=== PATIENT | male | born 1955 | race Caucasian/White ===

== ENCOUNTER → 2016-06-04 | Outpatient (CLI) | payer OTHER ==
[2015-11-03 15:18] VITALS: BP 112/61
[~2016-06-04] MED LIST: ASPI-482 PO; ATOR10TA60 PO; MULT-245 PO; OMEG1CAP6 PO
--- NOTE | 2016-06-04 10:54 | KCIC ---
PROCEDURE Orbit radiograph HISTORY History of metal to the left eye, pre MRI screen COMPARISON None FINDINGS Single-view of the orbits is submitted. No metallic foreign body is identified in the region of the orbits. There is dental hardware present. IMPRESSION No metallic foreign body is identified in the region of the orbits. Electronically signed by: Omar Diop MD (Jun 04, 2016 10:52:50)
--- NOTE | 2016-06-04 12:30 | KCIC ---
PROCEDURE MRI thoracic spine without contrast HISTORY Thoracic pain, pain between the shoulder blades for 1 year TECHNIQUE Sagittal and axial T1 and T2 and sagittal STIR images were acquired of the thoracic spine. Contrast: None COMPARISON None FINDINGS There is some motion degradation. Thoracic vertebral body stature is overall preserved. Thoracic cord caliber is within normal limits, no convincing focal signal abnormality allowing for some motion degradation. Some heterogeneous signal dorsal to the thoracic cord is more commonly due to CSF pulsation artifact. Focus of marrow signal abnormality of the T10 vertebral body is more likely due to a hemangioma, also likely foci of the posterior left T11 and posterior right T12 vertebral bodies. Foci are associated with variable increased signal on all sequences. There is no significant thoracic spinal stenosis at any level. Thoracic neural foramina are not significantly narrowed. Intervertebral disc spaces are relatively maintained, mild degenerative disc disease centered about mid thoracic levels. As seen on the localizer, there is degenerative disc disease of lumbar spine greatest at L3-4, multilevel posterior bulges. IMPRESSION 1. There is no significant thoracic spinal stenosis or neural foramina compromise. 2. Foci of marrow signal abnormality of the T10, T11, T12 vertebral bodies are favored to be due to hemangiomas. Electronically signed by: Omar Dipo MD (Jun 04, 2016 12:28:16)
== END | disposition home or self-care (01) ==
LOC: KCIC MRI 09:48
PROVIDERS: ATTEND Internal Medicine
DX: M54.6 Pain in thoracic spine (principal); Z90.01 Acquired absence of eye
CPT/HCPCS: 70030; 72146

== ENCOUNTER 2018-04-11 11:48 | Day surgery (SDC) | payer OTHER ==
[~2018-04-11 11:48] MED LIST changes: +HYDROmorphone 2 MG/ML VIAL IV PRN; +IV RINGERS,LACTATED 1000ML 1,000 ML IV SCH; +LIDOCAINE 1% PF 2 ML VIAL. ID PRN; +MORPHINE SULFATE 2 MG/ML VIAL. IV PRN; +ONDANSETRON PF 4 MG/2 ML VIAL. IV PRN; +PROCHLORPERAZINE 10 MG/2 ML VIAL. IV PRN; +fentaNYL PF VIAL 100 MCG/2 ML VIAL IV PRN
[2018-04-11] MEDS ORDERED: PROPOFOL 100 ML IV ONE (12:25)
[2018-04-11] MEDS ORDERED: PROPOFOL 20 ML IV ONE (12:26)
[2018-04-11] MEDS ORDERED: MIDAZOLAM HCL/PF 2 MG/2 ML VIAL. ONE (12:26)
[2018-04-11] MEDS ORDERED: KETAMINE HCL IN STERILE WATER 50 MG/5 ML SYRINGE ONE (12:26)
[2018-04-11 13:10] VITALS: BP 106/70
--- NOTE | 2018-04-11 14:17 | RAD ---
MRI Cervical Spine Without Contrast History: Neck pain, left arm radiculopathy, worsening pain in the last 2 years Technique: Multiplanar, multi sequential noncontrast MR imaging was performed of the cervical spine. Comparison: None Findings: There is some motion degradation. Cervical cord caliber is within normal limits without significant focal signal abnormality. There is no significant abnormality of the cervical medullary junction. Cervical vertebral body stature is preserved. There is negligible anterior spondylolisthesis C3-C4. There is no significant marrow edema. There is minimal degenerative disc disease at C3-4, mild disc desiccation at other levels of the cervical spine. C2-C3: There is fairly severe left facet degenerative change, mild posterior narrowing of the left neural foramen. Right neural foramen and spinal canal are adequate. C3-C4: There is posterior central protrusion about 3 to 4 mm AP by 6 to 7 mm transverse by 6 mm CC with more focal indentation upon the ventral thecal sac centrally, central canal narrowed to 7-8 mm, light contact of the ventral cord. There is severe left greater than right facet degenerative change. There is mild left uncovertebral degenerative change. There is fairly severe narrowing on the left neural foramen, right neural foramen overall adequate. C4-C5: There is severe facet degenerative change. There is minimal buckling of the ligamentum flavum. Central canal is adequate about 11 mm. There is mild posterior narrowing of the left neural foramen, right neural foramen adequate. C5-C6: There is posterior protrusion, indentation upon the ventral thecal sac, mild narrowing of the central canal about 9 mm. There is bilateral facet hypertrophic change. There is mild narrowing of the left neural foramen, right neural foramen adequate. C6-C7: Spinal canal and neural foramina are adequate. There is facet degenerative change. C7-T1: Neural foramina and spinal canal are adequate. Impression: 1. There is spinal stenosis on the order 7 to 8 mm at C3-4 with light contact of the ventral cord by protrusion, lesser degree of mild spinal stenosis C5-6. 2. There is fairly severe narrowing of the left C3-4 neural foramen due to facet and uncovertebral degenerative change, minimal narrowing on the left at C2-3, C4-5, and C5-6. There is multilevel facet degenerative change. There is negligible anterior spondylolisthesis C3-4. There is mild degenerative disc disease C3-4. Electronically signed by: Jayant Diop MD (04/11/2018 2:14 PM) [id number]
== END 2018-04-11 13:31 | disposition home or self-care (01) ==
LOC: MRI 11:48
PROVIDERS: ATTEND Anesthesiology
DX: M48.02 Spinal stenosis, cervical region (principal); M43.12 Spondylolisthesis, cervical region; M50.123 Cervical disc disorder at C6-C7 level with radiculopathy; Z88.8 Allergy status to other drugs, medicaments and biological substances
CPT/HCPCS: 72141; J2250; J2704

== ENCOUNTER → 2018-05-14 | Outpatient (CLI) | payer OTHER ==
[~2018-05-14] MED LIST changes: +FAMOTIDINE 20 MG/2 ML VIAL ONE; -HYDROmorphone 2 MG/ML VIAL IV PRN; -IV RINGERS,LACTATED 1000ML 1,000 ML IV SCH; +KETAMINE HCL IN STERILE WATER 50 MG/5 ML SYRINGE ONE; -LIDOCAINE 1% PF 2 ML VIAL. ID PRN; +MIDAZOLAM HCL/PF 2 MG/2 ML VIAL. ONE; -MORPHINE SULFATE 2 MG/ML VIAL. IV PRN; -ONDANSETRON PF 4 MG/2 ML VIAL. IV PRN; +ONDANSETRON PF 4 MG/2 ML VIAL. ONE; -PROCHLORPERAZINE 10 MG/2 ML VIAL. IV PRN; +PROPOFOL 100 ML IV ONE; +PROPOFOL 20 ML IV ONE; -fentaNYL PF VIAL 100 MCG/2 ML VIAL IV PRN
[2018-05-14 11:18] VITALS: BP 153/76
--- NOTE | 2018-05-14 12:59 | RAD ---
MRI Thoracic Spine without contrast History: Chronic pain, worsening back pain Technique: Multiplanar, multi sequential noncontrast MR imaging was performed of the thoracic spine. Comparison: June 04, 2016 Findings: Thoracic vertebral body stature is overall preserved. Thoracic cord caliber is within normal limits, no new defined thoracic cord signal abnormality. Some heterogeneous signal posterior to the thoracic cord is probably due to CSF pulsation artifact. There are again foci of somewhat heterogeneous signal of the T10, T11, T12 vertebral bodies with associated STIR hyperintense signal overall similar in appearance, likely hemangiomas. There is also tiny focus of T2 hyperintense signal of the posterior comment T9 vertebral body also similar. There is new mild amorphous edema associated with the left superior facet articular process and T3 and also the right T2-3 facet articulation. There is no new significant thoracic spinal stenosis. There is again multilevel posterior epidural lipomatosis. The residual AP thecal sac such as at T5 measures about 1.2 cm. There is no new significant thoracic neural foramina compromise. There is again mild degenerative disc disease greatest T4-T5 to T10-11. Impression: 1. There is new mild edema associated with right T2-3 facet articulation and also the left T3 superior facet articular process more likely to be reactive/degenerative in etiology. Otherwise findings are similar comparing with the previous May 2016 exam. There are similar foci of marrow signal change of inferior thoracic vertebral bodies, likely hemangiomas. There is no new significant thoracic spinal stenosis or neural foramina compromise. There is again mild degenerative disc disease centered about mid thoracic levels. Electronically signed by: Jayant Diop MD (05/14/2018 12:55 PM) [id number]
== END | disposition home or self-care (01) ==
LOC: MRI 09:22
PROVIDERS: ATTEND Physical Medicine & Rehabilitation
DX: M51.34 Other intervertebral disc degeneration, thoracic region (principal); E88.2 Lipomatosis, not elsewhere classified
CPT/HCPCS: 72146; J2250; J2704